=== PATIENT | female | born 1990 | race Caucasian/White ===

== ENCOUNTER 2020-03-31 10:29 | Emergency (ER) | payer OTHER ==
[~2020-03-31] VITALS: Ht 162.6 cm; Wt 93.0 kg
[2020-03-31 10:59] VITALS: Ht 162.6 cm; Wt 93.0 kg
[2020-03-31 12:00] VITALS: BP 138/93
== END 2020-03-31 12:00 | disposition home or self-care (01) ==
LOC: ED 10:29
DX: S61.201A Unspecified open wound of left index finger without damage to nail, initial encounter (principal); J45.909 Unspecified asthma, uncomplicated; G43.909 Migraine, unspecified, not intractable, without status migrainosus; W26.8XXA Contact with other sharp object(s), not elsewhere classified, initial encounter; Y93.89 Activity, other specified; Y92.89 Other specified places as the place of occurrence of the external cause; Y99.8 Other external cause status
CPT/HCPCS: J2001